=== PATIENT | male | born 1970 | race Caucasian/White ===

== ENCOUNTER → 2020-04-28 | Outpatient (CLI) | payer BC ==
--- NOTE | 2020-04-28 12:38 | RADIOLOGY REPORT (SQ) ---
EXAM DESCRIPTION: CHEST PA/LATERAL IMAGES COMPLETED DATE/TIME: 04/28/2020 12:28 pm REASON FOR STUDY: PNEUMOTHORAX, UNSPECIFIED COMPARISON: None. EXAM PARAMETERS: NUMBER OF VIEWS: two views TECHNIQUE: Digital Frontal and Lateral radiographic views of the chest acquired. RADIATION DOSE: NA LIMITATIONS: none FINDINGS: LUNGS AND PLEURA: No opacities, masses or pneumothorax. No pleural effusion. MEDIASTINUM AND HILAR STRUCTURES: No masses or contour abnormalities. HEART AND VASCULAR STRUCTURES: Heart normal size. No evidence for failure. BONES: No acute findings. HARDWARE: None in the chest. OTHER: No other significant finding. IMPRESSION: NO SIGNIFICANT RADIOGRAPHIC FINDING IN THE CHEST. TECHNICAL DOCUMENTATION: JOB ID: [id number] 2010 [email or web address]- All Rights Reserved Reading location - IP/workstation name: [email or web address]
== END ==
LOC: WC 11:41
PROVIDERS: ATTEND Plastic Surgery
DX: J93.9 Pneumothorax, unspecified (principal)
CPT/HCPCS: 71046

== ENCOUNTER 2020-06-11 11:19 | Emergency (ER) | payer BC ==
--- NOTE | 2020-06-11 12:16 | ER Document Report ---
ED Medical Screen (RME) - General Chief Complaint: Chest Pain Stated Complaint: MEDICAL CLEARANCE Time Seen by Provider: 06/11/20 12:09 Primary Care Provider: DAVID FITZGERALD MD [Primary Care Provider] - Follow up as needed Mode of Arrival: Wheelchair Information source: Patient Notes: 50 year-old male presented to ED for chest pain nausea while he was in the hyperbaric chamber. He states he was at level 40 feet. He states the chest pain is much better once he came back up to see level. He states he did belch several times. We will get blood urine chest x-ray he has had a EKG sinus rhythm. Patient will be seen by another provider. Lung sounds do sound like a smoker lungs. I have greeted and performed a rapid initial assessment of this patient. A co mprehensive ED assessment and evaluation of the patient, analysis of test results and completion of medical decision making process will be conducted by an additional ED providers. - Related Data Allergies/Adverse Reactions: Iqmzslq-Tpa-Nha Reductase Inhibitor Allergy (Verified 06/11/20 12:04) Home Medications: fenofibrate. furosemide. glipizide. metoprolol succ. amoxicillin. nystatin. escitalopram. isosorbide. januvia. losartan. methocarbamol. omeprazole Past Medical History - Social History Chew tobacco use (# tins/day): No Frequency of alcohol use: Rare Drug Abuse: None Physical Exam - Vital signs Vitals: Temp Pulse Resp BP Pulse Ox 98.0 F 72 16 108/74 95 06/11/20 11:49 06/11/20 11:49 06/11/20 11:49 06/11/20 11:49 06/11/20 11:49 Course - Vital Signs Vital signs: Temp Pulse Resp BP Pulse Ox 98.0 F 72 16 108/74 95 06/11/20 11:49 06/11/20 11:49 06/11/20 11:49 06/11/20 11:49 06/11/20 11:49 Doctor's Discharge - Discharge Referrals: DAVID FITZGERALD MD [Primary Care Provider] - Follow up as needed
--- NOTE | 2020-06-11 13:05 | RADIOLOGY REPORT (SQ) ---
EXAM DESCRIPTION: CHEST 2 VIEWS IMAGES COMPLETED DATE/TIME: 06/11/2020 12:53 pm REASON FOR STUDY: Chest pain COMPARISON: 04/28/2020 EXAM PARAMETERS: NUMBER OF VIEWS: two views TECHNIQUE: Digital Frontal and Lateral radiographic views of the chest acquired. RADIATION DOSE: NA LIMITATIONS: none FINDINGS: LUNGS AND PLEURA: No opacities, masses or pneumothorax. No pleural effusion. MEDIASTINUM AND HILAR STRUCTURES: No masses or contour abnormalities. HEART AND VASCULAR STRUCTURES: Heart normal size. No evidence for failure. BONES: No acute findings. HARDWARE: None in the chest. OTHER: No other significant finding. IMPRESSION: NO ACUTE RADIOGRAPHIC FINDING IN THE CHEST. TECHNICAL DOCUMENTATION: JOB ID: [id number] 2010 [employer]- All Rights Reserved Reading location - IP/workstation name: [email or web address]
[2020-06-11 13:14] LABS: ABSOLUTE EOSINOPHILS # (AUTO) 0.1 10^3/uL (0.0-0.6); ABSOLUTE LYMPHOCYTES (AUTO) 1.3 10^3/uL (0.5-4.7); ABSOLUTE MONOCYTES (AUTO) 0.3 10^3/uL (0.1-1.4); ABSOLUTE NEUT (AUTO) 2.5 10^3/uL (1.7-8.2); BASOPHILS % (AUTO) 0.7 % (0-2); EOSINOPHILS % (AUTO) 2.6 % (0-6); HEMATOCRIT 34.3 % (37.9-51.0); HEMOGLOBIN 11.5 g/dL (13.5-17.0); LYMPHOCYTES % (AUTO) 30.2 % (13-45); MEAN CORPUSCULAR HEMOGLOBIN 31.3 pg (27.0-33.4); MEAN CORPUSCULAR HGB CONC 33.6 g/dL (32.0-36.0); MEAN CORPUSCULAR VOLUME 93 fl (80-97); MONOCYTES % (AUTO) 7.8 % (3-13); PLATELET COUNT 162 10^3/uL (150-450); RED BLOOD COUNT 3.68 10^6/uL (4.35-5.55); RED CELL DISTRIBUTION WIDTH 13.6 % (11.5-14.0); SEGMENTED NEUTROPHILS % (AUTO) 58.7 % (42-78); TOTAL CELLS COUNTED % (AUTO) 100 %; WHITE BLOOD COUNT 4.2 10^3/uL (4.0-10.5)
[2020-06-11 13:44] LABS: ALBUMIN 4.2 g/dL (3.5-5.0); ALKALINE PHOSPHATASE 37 U/L (38-126); ANION GAP 12 (5-19); ASPARTATE AMINO TRANSFERASE 30 U/L (17-59); BILIRUBIN,DIRECT 0.2 mg/dL (0.0-0.4); BILIRUBIN,TOTAL 0.4 mg/dL (0.2-1.3); BLOOD UREA NITROGEN 28 mg/dL (7-20); CALCIUM 9.7 mg/dL (8.4-10.2); CARBON DIOXIDE 30 mmol/L (22-30); CHLORIDE 102 mmol/L (98-107); GLUCOSE 143 mg/dL (75-110); POTASSIUM 4.6 mmol/L (3.6-5.0); TOTAL PROTEIN 7.6 g/dL (6.3-8.2)
--- NOTE | 2020-06-11 16:58 | ER Document Report ---
ED General - General Chief Complaint: Chest Pain Stated Complaint: MEDICAL CLEARANCE Time Seen by Provider: 06/11/20 12:09 Primary Care Provider: DAVID FITZGERALD MD [ACTIVE STAFF] - Follow up as needed Mode of Arrival: Wheelchair Information source: Patient, Relative Notes: Patient is a 50-year-old male was brought into the emergency room by his with complaint of chest discomfort nausea vomiting abdominal discomfort. 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 He has been going to the wound care center on a regular basis. Currently his only antibiotic is amoxicillin 3 times a day. And it is healing so well. Patient was sent over because he was in the hyperbaric chamber this morning and had a onset of chest discomfort with some sweatiness nausea without vomiting and a little short of breath. There was a fleeting moment they took him out of the hy perbaric chamber and he got instantly better. They were instructed to come to the emergency room for evaluation. Patient does have a history of hypertension, insulin where he takes Trulicity. And has a history of 2 heart caths one at age 33 and the other one at age 39 no stents were placed in either 1. has brought with her all of his medical record since day 1 of this gangrene. And which includes his kidney functions as well as his chemistries and blood sugars. Patient is even got his cholesterol which was done on April 30. Patient is currently reporting no symptoms since he got out of the hyperbaric chamber. He does smoke. TRAVEL OUTSIDE OF THE [place] IN LAST 30 DAYS: No - HPI Onset: Just prior to arrival Onset/Duration: Sudden, Gone Quality of pain: Achy, Throbbing Severity: Moderate Pain Level: 3 Context: Patient was in hyperbaric chamber for wound rehab. Associated symptoms: Body/muscle aches, Chest pain, Chills, Nausea, Sweating, Weakness. denies: Vomiting Exacerbated by: Denies Relieved by: Remaining still, Other - Being removed from hyperbaric chamber Similar symptoms previously: No Recently seen / treated by doctor: Yes - Related Data Allergies/Adverse Reactions: Zkmxkza-Oft-Xmr Reductase Inhibitor Allergy (Verified 06/11/20 12:04) Home Medications: fenofibrate. furosemide. glipizide. metoprolol succ. amoxicillin. nystatin. escitalopram. isosorbide. januvia. losartan. methocarbamol. omeprazole Past Medical History - General Information source: Patient - Social History Smoking Status: Current Every Day Smoker Cigarette use (# per day): Yes - Half pack a day Chew tobacco use (# tins/day): No Smoking Education Provided: Yes Frequency of alcohol use: Rare Drug Abuse: None Lives with: Family Family History: Reviewed & Not Pertinent Patient has homicidal ideation: No Endocrine Medical History: Reports: Hx Diabetes Mellitus Type 2 Past Surgical History: Reports: Hx Kidney (Renal Surgery) Review of Systems - Review of Systems Constitutional: No symptoms reported EENT: No symptoms reported Cardiovascular: See HPI, Chest pain, Palpitations, Heart racing Respiratory: See HPI, Short of breath Gastrointestinal: See HPI, Nausea. denies: Abdominal pain, Vomiting Genitourinary: No symptoms reported Male Genitourinary: No symptoms reported Musculoskeletal: No symptoms reported Skin: No symptoms reported Hematologic/Lymphatic: No symptoms reported Neurological/Psychological: No symptoms reported, Anxiety Physical Exam - Vital signs Vitals: Temp Pulse Resp BP Pulse Ox 98.0 F 72 16 108/74 95 06/11/20 11:49 06/11/20 11:49 06/11/20 11:49 06/11/20 11:49 06/11/20 11:49 Interpretation: Hypotensive - Notes Notes: PHYSICAL EXAMINATION: GENERAL: Well-appearing, well-nourished and in no acute distress. On physical exam in the room patient is awake alert and oriented x4 no complaints currently. He states he is ready go home and eat. Patient does state that he feels this was an anxiety type of reaction because he had not taken his Valium. HEAD: Atraumatic, normocephalic. EYES: Pupils equal round and reactive to light, extraocular movements intact, sclera anicteric, conjunctiva are normal. ENT: Nares patent, oropharynx clear without exudates. Moist mucous membranes. NECK: Normal range of motion, supple without lymphadenopathy LUNGS: Breath sounds clear to auscultation bilaterally and equal. No wheezes rales or rhonchi. HEART: Regular rate and rhythm without murmurs ABDOMEN: Soft, nontender, nondistended abdomen. No guarding, no rebound. No masses appreciated. Musculoskeletal: Normal range of motion, no pitting or edema. No cyanosis. NEUROLOGICAL: Cranial nerves grossly intact. Normal speech, normal gait. Normal sensory, motor exams PSYCH: Normal mood, normal affect. SKIN: Warm, patient wound not evaluated since was seen at wound management prior to arrival. Course - Re-evaluation Re-evalutation: 06/11/20 16:58 further reports that on her way here today they were running late and she usually gives him a prescribed Valium 5 mg 30 minutes before he arrives for the hyperbaric chamber. She forgot to give it to him and so this is the first time he is gone into the chamber without having anxiety med on board. Patient's feels like that he had a anxiety reaction in the chamber. Patient also states that he only got this discomfort when he tried to turn over and allude the feeling of being suffocated. Once out of the hyperbaric chamber his symptoms return to normal. 06/11/20 16:59 Patient's EKG showed a sinus rhythm with no ST or QRS problems. There is no ectopy noted. Patient's other labs were normal. Also noted was his troponin on the first draw was also normal at less than 0.012. I discussed with the with a normal EKG and a second troponin comes back negative we will going discharge patient home with a diagnosis of vasovagal/anxiety at reaction to nontreatment and hyperbaric chamber. 06/12/20 01:44 Further reporting patient's is very organized my primary concern was patient's renal functions which showed a BUN of 28 and a creatinine of 2.24. He also had a glucose of 143. But patient's brought in the records that have been going on since inception of his infection in his groin. And back since April and will into May patient's renal functions have all been running a creatinine of greater than 2.0 but never over 2.6. And his BUN has been running about 28-30. Patient also had a patient's last cholesterol check which was done about the same time. He had an HDL of 17, triglycerides of 272, LDL of 82, with a total cholesterol of 135. Given all this information I felt it was fair to state patient could be discharged home no real significance in the chest pain presentation with him having a high anxiety level in the hyperbaric chamber. His second troponin was negative as well. - Vital Signs Vital signs: Temp Pulse Resp BP Pulse Ox 98.4 F 72 16 121/73 94 06/11/20 17:01 06/11/20 11:49 06/11/20 11:49 06/11/20 17:01 06/11/20 17:01 - Laboratory Result Diagrams: 06/11/20 12:33 06/11/20 12:33 Laboratory results interpreted by me: 06/11/20 06/11/20 12:33 12:33 RBC 3.68 L Hgb 11.5 L Hct 34.3 L BUN 28 H Creatinine 2.24 H Est GFR ( Amer) 38 L Est GFR (MDRD) Non-Af 31 L Glucose 143 H Alkaline Phosphatase 37 L Discharge - Discharge Clinical Impression: Vasovagal near syncope, Anxiety Condition: Stable Disposition: HOME, SELF-CARE Instructions: Anxiety ([facility]), Vasovagal Symptoms ([facility]) Additional Instructions: As we discussed I feel safe for your to go home. And since you are in agreement with this plan and he has had a second troponin that was negative. His EKG was normal appearing. His renal functions will his baseline I feel comfortable allowing patient to go home. However please note I believe this to be an anxiety reaction to the hyperbaric chamber where he did not receive his Valium. And also had the anxiety reaction during his treatment in the hyperbaric chamber. Should he have increasing shortness of breath as we discussed or he has return of chest pain as we discussed you have agreed to bring him back to emergency room for reevaluation. Forms: Smoking Cessation Education, Return to Work Referrals: DAVID FITZGERALD MD [ACTIVE STAFF] - Follow up as needed
[2020-06-11 17:11] VITALS: BP 121/73
--- NOTE | 2020-06-11 17:37 | EKG REPORT ---
SEVERITY:- NORMAL ECG - SINUS RHYTHM : Confirmed by: Racheal Alfaro 11-Jun-2020 17:36:23
== END 2020-06-11 17:12 | disposition home or self-care (01) ==
LOC: ER 11:19
DX: F41.9 Anxiety disorder, unspecified (principal); R55 Syncope and collapse; R11.0 Nausea; R07.9 Chest pain, unspecified; R68.83 Chills (without fever); R00.2 Palpitations; R61 Generalized hyperhidrosis; R06.02 Shortness of breath; M79.10 Myalgia, unspecified site; E11.9 Type 2 diabetes mellitus without complications; N49.3 Fournier gangrene; F17.210 Nicotine dependence, cigarettes, uncomplicated; Z79.899 Other long term (current) drug therapy; Z79.2 Long term (current) use of antibiotics; Z79.4 Long term (current) use of insulin; Z88.8 Allergy status to other drugs, medicaments and biological substances
CPT/HCPCS: 36415; 71046; 80053; 83735; 84484; 85025; 93005; 93010; 99285